=== PATIENT | male | born 1965 | race African-American/Black ===

== ENCOUNTER 2023-08-23 08:33 | Outpatient (CLI) | payer BC, SELFPAY | END 2023-08-23 08:34 | disposition home or self-care (01) | PROVIDERS: PCP Family Medicine; Visit Provider Family Medicine | DX: Z13.228 Encounter for screening for other metabolic disorders (principal); Z13.220 Encounter for screening for lipoid disorders; Z12.5 Encounter for screening for malignant neoplasm of prostate | CPT/HCPCS: 80053; 80061; 87086; G0103 ==